=== PATIENT | male | born 1990 | race Caucasian/White ===

== ENCOUNTER 2016-11-10 00:52 | Emergency (ER) | payer OTHER ==
[~2016-11-10] VITALS: Ht 177.8 cm; Wt 108.9 kg
[2016-11-10] MEDS ORDERED: NKM (00:59)
[2016-11-10 01:00] VITALS: BP 116/75
--- NOTE | 2016-11-10 01:08 | Emergency Room Report ---
History of Present Illness General Chief Complaint: Puncture Wound Source: Patient Present Illness HPI 26 YOM with allegedly stepping on broken wine glass at work that punctured thru show of right foot. Had some bleeding thru sock and in shoe. Didnt wash or clean it yet. Unknown last tetanus. Denies other med problems. Allergies: Coded Allergies: No Known Allergies (Unverified , 11/10/16) Patient History Past Medical History: none Past Surgical History: none Pertinent Family History: none Social History: Denies: alcohol use, drug use, smoking Immunizations: other - Unknwon tetanus Reviewed Nursing Documentation: PMH: Agreed, PSxH: Agreed Nursing Documentation-PMH Past Medical History: No Stated History Review of Systems All Other Systems: negative except mentioned in HPI Physical Exam Vital Signs Date Time Temp Pulse Resp B/P Pulse Ox O2 Delivery O2 Flow Rate FiO2 11/10/16 00:54 98.2 97 16 116/75 99 Room Air Sp02 EP Interpretation: reviewed, normal General Appearance: normal inspection, well appearing, no apparent distress, alert, GCS 15, non-toxic Head: normocephalic, atraumatic Eyes: bilateral eye EOMI, bilateral eye PERRL ENT: normal ENT inspection, hearing grossly normal, normal voice Neck: normal inspection, full range of motion, supple, no bony tend Respiratory: normal inspection, lungs clear, normal breath sounds, no respiratory distress, no retraction, no wheezing Cardiovascular #1: regular rate, rhythm, no edema Gastrointestinal: normal inspection, normal bowel sounds, non tender, soft, no guarding, no hernia Genitourinary: no CVA tenderness Musculoskeletal: normal inspection, back normal, normal range of motion, Maico' s Sign negative Neurologic: normal inspection, alert, oriented x3, responsive, dog bather III-XII nml as tested, motor strength/tone normal, speech normal Psychiatric: normal inspection, judgement/insight normal, mood/affect normal Skin: normal inspection, normal color, other - Right foot: dried blood on heel ; no laceration or puncture. Small abrasions. No FB seen or palpated in skin Medical Decision Making Diagnostic Impression: Primary Impression: Abrasion, right foot, initial encounter ER Course 26 YO M with right foot abrasions from broken glass. VSS. Afebrile Tetanus updated in ED Foot cleaned No FB No puncture or lac - was not a nail so does not need PPx against Pseudomonas No other comorbid conditions so does not need Abx at this time Advised to keep clean/covered PMD followup as needed Last Vital Signs Date Time Temp Pulse Resp B/P Pulse Ox O2 Delivery O2 Flow Rate FiO2 11/10/16 00:54 98.2 97 16 116/75 99 Room Air Status: improved Disposition: HOME, SELF-CARE IDALMIS BRASHER M.D. Nov 10, 2016 01:08
[2016-11-10] MEDS ORDERED: TdaP Vaccine 0.5ml Syr IM ONE (01:15)
[2016-11-10 01:33] VITALS: BP 116/75
== END 2016-11-10 01:30 | disposition home or self-care (01) ==
LOC: EMR 01:30
DX: S90.811A Abrasion, right foot, initial encounter (principal); W22.8XXA Striking against or struck by other objects, initial encounter; Y92.511 Restaurant or cafe as the place of occurrence of the external cause; Y99.0 Civilian activity done for income or pay; Z23 Encounter for immunization
CPT/HCPCS: 90471; 90715; 99283